=== PATIENT | male | born 1970 | race Caucasian/White ===

== ENCOUNTER 2020-07-17 13:32 | Outpatient (REF) | payer BC, SELFPAY ==
[2020-07-17 14:05] LABS: COVID-19 Test Negative (Negative); IDNOW Serial# 55D5AD1C
== END 2020-07-17 13:33 | disposition home or self-care (01) ==
LOC: HO.LAB 13:32
PROVIDERS: Visit Provider Internal Medicine
DX: Z20.828 Contact with and (suspected) exposure to other viral communicable diseases (principal)
CPT/HCPCS: 36415; 87635; C9803